=== PATIENT | male | born 2000 | race Two or more races ===

== ENCOUNTER 2024-05-12 11:15 | Outpatient (CLI) | payer OTHER | END 2024-05-12 11:30 | disposition home or self-care (01) | LOC: TOM 11:15 | PROVIDERS: ATTEND Otolaryngology | DX: J35.1 Hypertrophy of tonsils (principal) ==

== ENCOUNTER 2024-08-17 08:37 | Outpatient (CLI) | payer OTHER | END 2024-08-17 08:48 | disposition home or self-care (01) | LOC: SONOGRAMA 08:37 | DX: E04.1 Nontoxic single thyroid nodule (principal); R74.01 Elevation of levels of liver transaminase levels ==